=== PATIENT | male | born 1995 | race African-American/Black ===

== ENCOUNTER 2023-09-27 15:11 | Emergency (ER) | payer MEDICAID ==
[~2023-09-27] VITALS: Ht 188 cm; Wt 188.7 kg
[2023-09-27 16:19] VITALS: BP 163/81; PULSE 93; RESP 16; O2SAT 100
== END 2023-09-27 19:16 | disposition home or self-care (01) ==
LOC: ER 15:11
DX: M77.8 Other enthesopathies, not elsewhere classified (principal)
CPT/HCPCS: 73090